=== PATIENT | male | born 1935 | race Caucasian/White ===

== ENCOUNTER 2020-11-26 13:32 | Observation (INO) ==
--- NOTE | 2020-11-26 14:01 | ERNOTE ---
Medical Problem HPI - Narrative Date of Service: 11/26/20 - General Chief Complaint: General Assessment Time Seen by Provider: 11/26/20 13:37 Source: patient Exam Limitations: no limitations - Immun/Allergies/Home Medications Immunizations: IMMUNIZATION HX Immunizations Up to Date Yes History of Influenza Vaccine Yes Hx Pneumococcal Vaccination Yes Allergies/Adverse Reactions: Allergies enalapril maleate [From Vasotec] Adverse Reaction (Mild, Verified 11/26/20 16:32) COUGH enalaprilat dihydrate [From Vasotec] Adverse Reaction (Mild, Verified 11/26/20 16:32) COUGH Home Medications: HOME MEDICATIONS Aspirin [Aspirin Chewable] 81 mg PO DAILY 05/07/15 [Last Taken Unknown] Blood Sugar Diagnostic, Drum [Accu-Chek Compact] 1 ea MC DAILY 02/13/16 [Last Taken Unknown] omega-3 fatty acids 1,000 mg capsule 2,000 mg PO DAILY cap 04/24/18 [Last Taken Unknown] cholecalciferol (vitamin D3) 25 mcg (1,000 unit) capsule 2,000 unit PO DAILY cap 04/28/18 [Last Taken Unknown] furosemide 40 mg tablet 40 mg PO DAILY #30 tab 11/08/19 [Last Taken Unknown] losartan 100 mg tablet 100 mg PO DAILY #90 tab 12/03/19 [Last Taken Unknown] repaglinide 0.5 mg tablet 0.5 mg PO TID 90 Days #270 tab 12/04/19 [Last Taken Unknown] blood sugar diagnostic See Dose Instructions .ROUTE .MEDSUPPLY #100 ea 05/26/20 [Last Taken Unknown] lancets 28 gauge See Dose Instructions .ROUTE .MEDSUPPLY #100 ea 05/27/20 [Last Taken Unknown] levothyroxine 137 mcg capsule 137 mcg PO DAILY #30 cap 08/29/20 [Last Taken Unknown] glipizide 10 mg tablet 25 mg PO DAILY #75 tab 10/27/20 [Last Taken Unknown] Carvedilol [Coreg] 12.5 mg PO BID 11/26/20 [Last Taken Unknown] Simvastatin [Zocor] 10 mg PO HS 11/26/20 [Last Taken Unknown] - History of Present History Narrative: This patient is an 85-year-old male who is here because he has no strength or energy. He feels like he might pass out at times. He has felt this way for the past for 5 days. For the past 1 to 2 weeks, he has had a cough which has been productive. He gets short of breath at times. He has had weight gain with increased abdominal girth and swelling of his legs. He has a known aortic stenosis murmur. He denies fever. He has had a runny nose. Review of Systems - Narrative Narrative: He denies history of COPD. He has no history of heart disease or atrial fibrillation. He denies congestive heart failure. He is not on a diuretic. - Review of Systems Constitutional: Present: weakness, fatigue. Absent: fever, weight loss EYE: Present: no symptoms reported ENT: Present: nasal drainage. Absent: ear pain, sore throat Respiratory: Present: shortness of breath, cough Cardiology: Present: edema. Absent: chest pain, palpitations, syncope Gastrointestinal/Abdominal: Absent: nausea, vomiting, diarrhea, constipation, abdominal pain Genitourinary: Absent: frequency, pain, dysuria, hematuria Musculoskeletal: Present: no symptoms reported Skin: Absent: rash Neurological: Present: dizziness/light-headedness. Absent: headache Endocrine: Present: other - He is diabetic Hematologic/Lymphatic: Present: other - No active bleeding Psych: Present: no symptoms reported Medical History (Last Reviewed 11/26/20 @ 13:59 by Nadir Walton MD) Chronic kidney disease, stage 3 (Chronic) Onset Date: Unknown Pappas's palsy (Chronic) Onset Date: Unknown Anemia (Chronic) Onset Date: Unknown Carpal tunnel syndrome Onset Date: ~1996 bilateral Cholecystitis Onset Date: Unknown Bronchitis Onset Date: Unknown Bursitis, shoulder Onset Date: ~2008 right shoulder Surgical History: Surgical History (Last Reviewed 11/26/20 @ 13:59 by Nadir Walton MD) H/O cystoscopy Onset Date: ~2014 H/O tooth extraction Onset Date: Unknown History of carpal tunnel release Onset Date: ~2000 bilateral History of colonoscopy Onset Date: ~2015 [place]-tubular adenoma. Recheck 5-10yrs. History of esophagogastroduodenoscopy (EGD) Onset Date: ~2015 [place]-' clotest negative, chronic gastritis. '16 clotest negative. Hx of cataract surgery Onset Date: ~2014 bilaterally Family History: Family History (Last Reviewed 11/26/20 @ 13:59 by Nadir Walton MD) Brother Pacemaker Heart disease Daughter Colon cancer Father No problems noted. Mother , age 89, CVA,HTN, Hypertension CVA (cerebral vascular accident) Sister Breast cancer Sister Myocardial infarction Son AIDS (acquired immune deficiency syndrome) Alcoholism Social History: (Last Reviewed 11/26/20 @ 13:59 by Nadir Walton MD) Social History: Marital status: Single household members: significant other current occupational status: retired Highest level of school completed/degree received: 9th grade Tobacco: Smoking Status: Never smoker Alcohol: alcohol intake: former Dietary Habits: caffeine: Yes Physical Exam - Physical Exam General Appearance: Present: wd/wn, alert, no apparent distress Head Exam: Present: normal inspection, no evidence of injury Eye Exam: Normal inspection: bilateral Ears, Nose, Throat: Present: normal ENT inspection Neck: Present: normal inspection, supple. Absent: limited range of motion - Get strep, lymphadenopathy (R) Respiratory: Present: no respiratory distress, crackles - Bilateral bases, right greater than left Cardiovascular/Chest: Present: bradycardia. Absent: no murmur Gastrointestinal/Abdominal: Present: normal bowel sounds, nontender, nondistended, soft, no organomegaly Back Exam: Present: normal inspection Extremity Exam: Present: normal inspection, pedal edema Neurological Exam: Present: alert, oriented, normal mood/affect, no motor/sensory deficits - No gross lateralizing neurologic deficit. Skin Exam: Present: normal color, warm/dry Progress - Results and Orders Patient's Lab Results:: I have reviewed the patient's lab results. Results and Orders: Laboratory Tests 11/26/20 11/26/20 11/26/20 14:04 14:04 14:35 WBC 5.5 RBC 3.48 L Hgb 11.0 L Hct 32.7 L MCV 94.0 MCH 31.6 H MCHC 33.6 RDW 13.0 Plt Count 95 L MPV 9.7 Immature Gran % (Auto) 0.70 H Immature Gran # (Auto) 0.04 H Neutrophils % 70.8 Lymphocytes % 13.3 L Monocytes % 12.4 H Eosinophils % 2.4 Basophils % 0.4 Nucleated RBC % 0.0 Neutrophils # 3.9 Lymphocytes # 0.73 L Monocytes # 0.7 Eosinophils # 0.1 Absolute Basophils 0.0 Sodium 139 Plasma Sodium 140 Potassium 4.4 Chloride 103 Carbon Dioxide 26.3 Anion Gap 14.1 H BUN 48 H Creatinine 1.75 H D Est GFR (Non-Af Amer) 39 L D BUN/Creatinine Ratio 27.4 H Random Glucose 140 H Calcium 8.7 Calcium Adj for Albumin 8.9 Total Bilirubin 0.8 AST 28 ALT 46 Alkaline Phosphatase 60 Troponin I 0.255 H* B-Natriuretic Peptide 36945 H Total Protein 6.2 Albumin 3.4 Urine Color Yellow Urine Appearance Clear Urine pH 6.0 Ur Specific [place] 1.015 Urine Protein Negative Urine Glucose (UA) Negative Urine Ketones Negative Urine Blood Negative Urine Nitrate Negative Urine Bilirubin Negative Urine Urobilinogen Normal Ur Leukocyte Esterase Negative Urine RBC Trace Urine WBC Trace Ur Epithelial Cells Trace Urine Bacteria Trace Urine Culture Comments No culture indicated - Vital Signs Patient's Vital Signs:: I have reviewed the patient's vital signs. Vital Signs: Vital Signs 11/26/20 13:33 Temperature 36.1 C Pulse Rate 62 Respiratory Rate 15 Blood Pressure 140/71 O2 Sat by Pulse Oximetry 97 - EKG EKG #1 EKG read: Interp. by me EKG Comments: Normal sinus rhythm Rate 61 Low voltage Poor R wave progression No acute appearing ST or T wave changes No significant change from an EKG dated 10/24/2019 - X-Ray X-Ray #1 X-Ray: chest Interpretation: Reviewed by me X-ray Comments: Chest PA & Lateral *~ Exam Date: 11/26/2020 14:49 Ordering Physician: Nadir Walton MD HISTORY: Shortness of breath 2 VIEW CHEST Comparison: 10/24/2019 Technique: Upright frontal and lateral views of the chest were obtained. Findings: The cardiac silhouette is borderline in size. The mediastinum and hilum are with in normal limits. The lung rede demonstrate mild hyperinflation, but appear clear. I do not see evidence for an infiltrate or pulmonary edema. There may be tiny effusions. IMPRESSION: 1. HYPERINFLATION. 2. PROBABLE TINY BILATERAL EFFUSIONS. 3. OTHERWISE, NO ACUTE CARDIOPULMONARY PROCESS. Electronically signed by Yuri Castellanos M.D.. - Progress/Reassessment Chief Complaint: General Assessment Departure Clinical Impression: Congestive heart failure, Generalized weakness, Elevated troponin, Diabetes mellitus, CKD (chronic kidney disease), Aortic valve stenosis - Departure Disposition: Still a patient Condition: Stable
[2020-11-26 14:11] LABS: Hematocrit 32.7 % (42.0-52.0); Mean Corpuscular Hemoglobin 31.6 pg (27-31); Mean Corpuscular Hgb Conc 33.6 g/dl (32-36); Mean Platelet Volume 9.7 fl (8-11.3); Neutrophil # 3.9 K/mm3 (1.3-6.0); Neutrophil % 70.8 % (42-75.0); Platelet Count 95 K/mm3 (150-450); Red Blood Count 3.48 M/mm3 (4.7-6.0); White Blood Count 5.5 K/mm3 (4.0-10.5)
[2020-11-26 14:33] LABS: Albumin * 3.4 gm/dl (3.4-5.0); Anion Gap 14.1 mmol/L (6.8-13.8); BUN/Creatinine Ratio 27.4 (9.0-21.6); Bilirubin, Total 0.8 mg/dL (0.0-1.1); Ca. Corrected For Albumin 8.9 mg/dL (8.4-10.2); Calcium * 8.7 mg/dL (7.9-10.9); Carbon Dioxide 26.3 mmol/L (24-32.6); Potassium 4.4 mmol/L (3.4-4.6); Total Protein 6.2 gm/dL (6.2-8.2); Troponin I 0.255 ng/mL (0.00-0.10)
[2020-11-26 14:45] LABS: Urine Bilirubin Negative (NEGATIVE); Urine Blood Negative /ul (NEGATIVE); Urine Ketone Negative (NEGATIVE); Urine Nitrite Negative (NEGATIVE); Urine Protein Negative (NEGATIVE); Urine Specific Gravity 1.015 SP.GR. (1.005-1.030); Urine Urobilinogen Normal (NORMAL)
[2020-11-26 14:57] LABS: Urine Appearance Clear (CLEAR); Urine Color Yellow
[2020-11-26 14:58] LABS: Urine Bacteria TRACE; Urine RBC TRACE /hpf (0-5); Urine WBC TRACE /hpf (0-5)
[2020-11-26] MEDS ORDERED: FUROSEMIDE 10 MG/ML VIAL IV ONE (15:03)
[2020-11-26] MEDS: BENZONATATE 100 MG CAPSULE PO PRN ×2 (17:39→22:27)
[2020-11-26] MEDS ORDERED: ALBUTEROL SULFATE 2.5 MG/0.5 ML VIAL.NEB IH ONE (20:12)
[2020-11-26] MEDS ORDERED: SIMVASTATIN 10 MG TABLET PO SCH (21:00)
[2020-11-26] MEDS ORDERED: LOSARTAN POTASSIUM 50 MG TABLET PO SCH (21:00)
[2020-11-26] MEDS: FUROSEMIDE 10 MG/ML VIAL IV SCH (21:04)
[2020-11-26] MEDS: CARVEDILOL 12.5 MG TABLET PO SCH (21:05)
--- NOTE | 2020-11-26 23:22 | HP ---
Chief Complaint - Chief Complaint Date of Service: 11/26/20 Time of Service: 16:00 Chief Complaint: Shortness of breath, cough History of Present Illness: Clifford is an 85 yo male that presents with shortness of breath, lower extremity edema, weakness, and weight gain. In the ER he was evaluated and BNP was 11,000. Chest xray shows bilateral pleural effusions (minimal). Troponin is indeterminately elevated at 0.2. He denies chest pain. He reports decreased activity lately, but no change in his sodium intake. He is unsure how much weight he has increased. He otherwise has not noticed any other changes. Medical History (Last Reviewed 11/26/20 @ 16:32 by Hesham Kwan RN) Chronic kidney disease, stage 3 (Chronic) Onset Date: Unknown Pappas's palsy (Chronic) Onset Date: Unknown Anemia (Chronic) Onset Date: Unknown Diabetes Carpal tunnel syndrome Onset Date: ~1996 bilateral Cholecystitis Onset Date: Unknown Bronchitis Onset Date: Unknown Bursitis, shoulder Onset Date: ~2008 right shoulder Surgical History: Surgical History (Last Reviewed 11/26/20 @ 16:32 by Hesham Kwan RN) H/O cystoscopy Onset Date: ~2014 H/O tooth extraction Onset Date: Unknown History of carpal tunnel release Onset Date: ~2000 bilateral History of colonoscopy Onset Date: ~2015 [place]-tubular adenoma. Recheck 5-10yrs. History of esophagogastroduodenoscopy (EGD) Onset Date: ~2015 [place]-'11 clotest negative, chronic gastritis. '16 clotest negative. Hx of cataract surgery Onset Date: ~2014 bilaterally Family History: Family History (Last Reviewed 11/26/20 @ 16:32 by Hesham Kwan RN) Brother Heart disease Pacemaker Daughter Colon cancer Father No problems noted. Mother , age 89, CVA,HTN, CVA (cerebral vascular accident) Hypertension Sister Breast cancer Sister Myocardial infarction Son Alcoholism AIDS (acquired immune deficiency syndrome) Social History: (Last Reviewed 11/26/20 @ 16:32 by Hesham Kwan RN) Social History: Marital status: Single household members: significant other current occupational status: retired Highest level of school completed/degree received: 9th grade Tobacco: Smoking Status: Never smoker Alcohol: alcohol intake: former Dietary Habits: caffeine: Yes Review Of Systems (GEN) - Review of Systems Generalized/Overall Review: Present: Weakness. Absent: Chills, Fever EENTM: Present: No Symptoms Reported Respiratory: Present: Cough, Shortness of Breath Cardiac: Present: Edema. Absent: Chest Pain, Palpitations, Syncope Abdominal: Absent: Nausea, Vomiting Genitourinary: Absent: Burning, Frequency Musculoskeletal: Present: No Symptoms Reported Neurological: Absent: Headache, Anxiety Skin: Present: No Symptoms Reported Immunizations: IMMUNIZATION HX Immunizations Up to Date Yes History of Influenza Vaccine Yes Hx Pneumococcal Vaccination Yes Allergies/Adverse Reactions: Allergies Allergy/AdvReac Type Severity Reaction Status Date / Time enalapril maleate AdvReac Mild COUGH Verified 11/26/20 16:32 [From Vasotec] enalaprilat dihydrate AdvReac Mild COUGH Verified 11/26/20 16:32 [From Vasotec] Home Medications: HOME MEDICATIONS Aspirin [Aspirin Chewable] 81 mg PO DAILY 05/07/15 [Last Taken Unknown] Blood Sugar Diagnostic, Drum [Accu-Chek Compact] 1 ea MC DAILY 02/13/16 [Last Taken Unknown] omega-3 fatty acids 1,000 mg capsule 2,000 mg PO DAILY cap 04/24/18 [Last Taken Unknown] cholecalciferol (vitamin D3) 25 mcg (1,000 unit) capsule 2,000 unit PO DAILY cap 04/28/18 [Last Taken Unknown] furosemide 40 mg tablet 40 mg PO DAILY #30 tab 11/08/19 [Last Taken Unknown] losartan 100 mg tablet 100 mg PO DAILY #90 tab 12/03/19 [Last Taken Unknown] repaglinide 0.5 mg tablet 0.5 mg PO TID 90 Days #270 tab 12/04/19 [Last Taken Unknown] blood sugar diagnostic See Dose Instructions .ROUTE .MEDSUPPLY #100 ea 05/26/20 [Last Taken Unknown] lancets 28 gauge See Dose Instructions .ROUTE .MEDSUPPLY #100 ea 05/27/20 [Last Taken Unknown] levothyroxine 137 mcg capsule 137 mcg PO DAILY #30 cap 08/29/20 [Last Taken Unknown] glipizide 10 mg tablet 25 mg PO DAILY #75 tab 10/27/20 [Last Taken Unknown] Carvedilol [Coreg] 12.5 mg PO BID 11/26/20 [Last Taken Unknown] Simvastatin [Zocor] 10 mg PO HS 11/26/20 [Last Taken Unknown] Exam - Exam Vital Signs: Vital Signs - Last Taken Temp 36.6 C 11/26/20 16:45 Pulse 64 11/26/20 21:05 Resp 16 11/26/20 20:23 BP 171/79 H 11/26/20 21:05 Pulse Ox 97 11/26/20 20:15 Constitutional: Present: Alert, Oriented x3, Cooperative ENT Exam: Present: hearing grossly normal Eye Exam: bilateral eye: normal inspection Respiratory: Present: crackles Cardiovascular/Chest: Present: regular rate, rhythm, no murmur Peripheral Pulses: radial (R): 2+, radial (L): 2+ Abdomen: Present: Normal bowel sounds, soft, nontender, nondistended Extremity: Present: lower extremity edema - 3+ Skin Exam: Present: normal color, warm/dry, no cyanosis Lymphatic: Present: no adenopathy Appearance: Present: appropriate appearance, appropriate insight Eye contact: Present: cooperative, good eye contact, normal speech Thoughts: Present: normal thought pattern, no apparent hallucination Diagnostic Studies: Abnormal Lab Results 11/26/20 11/26/20 Range/Units 14:04 14:04 RBC 3.48 L (4.7-6.0) M/mm3 Hgb 11.0 L (13.5-18.0) gm/dL Hct 32.7 L (42.0-52.0) % MCH 31.6 H (27-31) pg Plt Count 95 L (150-450) K/mm3 Immature Gran % (Auto) 0.70 H (0.001-0.429) % Immature Gran # (Auto) 0.04 H (0.000-0.0310) K/mm3 Lymphocytes % 13.3 L (20-51) % Monocytes % 12.4 H (0.0-9) % Lymphocytes # 0.73 L (1.5-3.5) k/mm3 Anion Gap 14.1 H (6.8-13.8) mmol/L BUN 48 H (6-23) mg/dL Creatinine 1.75 H D (0.4-1.4) mg/dL Est GFR (Non-Af Amer) 39 L D (60-130) mL/min BUN/Creatinine Ratio 27.4 H (9.0-21.6) Random Glucose 140 H (70-110) mg/dL Troponin I 0.255 H* (0.00-0.10) ng/mL B-Natriuretic Peptide 79633 H (5-650) pg/mL Laboratory Results WBC 5.5 K/mm3 (4.0-10.5) 11/26/20 14:04 RBC 3.48 M/mm3 (4.7-6.0) L 11/26/20 14:04 Hgb 11.0 gm/dL (13.5-18.0) L 11/26/20 14:04 Hct 32.7 % (42.0-52.0) L 11/26/20 14:04 MCV 94.0 fl (78-100) 11/26/20 14:04 MCH 31.6 pg (27-31) H 11/26/20 14:04 MCHC 33.6 g/dl (32-36) 11/26/20 14:04 RDW 13.0 % (11.5-14.0) 11/26/20 14:04 Plt Count 95 K/mm3 (150-450) L 11/26/20 14:04 MPV 9.7 fl (8-11.3) 11/26/20 14:04 Immature Gran % (Auto) 0.70 % (0.001-0.429) H 11/26/20 14:04 Immature Gran # (Auto) 0.04 K/mm3 (0.000-0.0310) H 11/26/20 14:04 Neutrophils % 70.8 % (42-75.0) 11/26/20 14:04 Lymphocytes % 13.3 % (20-51) L 11/26/20 14:04 Monocytes % 12.4 % (0.0-9) H 11/26/20 14:04 Eosinophils % 2.4 % (0.0-3.0) 11/26/20 14:04 Basophils % 0.4 % (0.0-1.0) 11/26/20 14:04 Nucleated RBC % 0.0 k/mm3 (0-1) 11/26/20 14:04 Neutrophils # 3.9 K/mm3 (1.3-6.0) 11/26/20 14:04 Lymphocytes # 0.73 k/mm3 (1.5-3.5) L 11/26/20 14:04 Monocytes # 0.7 k/mm3 (0.0-1.0) 11/26/20 14:04 Eosinophils # 0.1 k/mm3 (0.0-0.7) 11/26/20 14:04 Absolute Basophils 0.0 k/mm3 (0.0-0.1) 11/26/20 14:04 Sodium 139 mmol/L (132-142) 11/26/20 14:04 Plasma Sodium 140 mmol/L (130-142) 11/26/20 14:04 Potassium 4.4 mmol/L (3.4-4.6) 11/26/20 14:04 Chloride 103 mmol/L (97-106) 11/26/20 14:04 Carbon Dioxide 26.3 mmol/L (24-32.6) 11/26/20 14:04 Anion Gap 14.1 mmol/L (6.8-13.8) H 11/26/20 14:04 BUN 48 mg/dL (6-23) H 11/26/20 14:04 Creatinine 1.75 mg/dL (0.4-1.4) H D 11/26/20 14:04 Est GFR (Non-Af Amer) 39 mL/min (60-130) L D 11/26/20 14:04 BUN/Creatinine Ratio 27.4 (9.0-21.6) H 11/26/20 14:04 Random Glucose 140 mg/dL (70-110) H 11/26/20 14:04 Calcium 8.7 mg/dL (7.9-10.9) 11/26/20 14:04 Calcium Adj for Albumin 8.9 mg/dL (8.4-10.2) 11/26/20 14:04 Total Bilirubin 0.8 mg/dL (0.0-1.1) 11/26/20 14:04 AST 28 U/L (0-48) 11/26/20 14:04 ALT 46 U/L (19-67) 11/26/20 14:04 Alkaline Phosphatase 60 U/L (50-170) 11/26/20 14:04 Troponin I 0.255 ng/mL (0.00-0.10) H* 11/26/20 14:04 B-Natriuretic Peptide 94347 pg/mL (5-650) H 11/26/20 14:04 Total Protein 6.2 gm/dL (6.2-8.2) 11/26/20 14:04 Albumin 3.4 gm/dl (3.4-5.0) 11/26/20 14:04 Urine Color Yellow 11/26/20 14:35 Urine Appearance Clear (CLEAR) 11/26/20 14:35 Urine pH 6.0 pH (5.0-7.0) 11/26/20 14:35 Ur Specific [place] 1.015 SP.GR. (1.005-1.030) 11/26/20 14:35 Urine Protein Negative mg/dL (NEGATIVE) 11/26/20 14:35 Urine Glucose (UA) Negative mg/dL (NEGATIVE) 11/26/20 14:35 Urine Ketones Negative mg/dL (NEGATIVE) 11/26/20 14:35 Urine Blood Negative /ul (NEGATIVE) 11/26/20 14:35 Urine Nitrate Negative (NEGATIVE) 11/26/20 14:35 Urine Bilirubin Negative mg/dl (NEGATIVE) 11/26/20 14:35 Urine Urobilinogen Normal EU/dl (NORMAL) 11/26/20 14:35 Ur Leukocyte Esterase Negative /ul (NEGATIVE) 11/26/20 14:35 Urine RBC Trace /hpf (0-5) 11/26/20 14:35 Urine WBC Trace /hpf (0-5) 11/26/20 14:35 Ur Epithelial Cells Trace /hpf (0-5) 11/26/20 14:35 Urine Bacteria Trace (NONE) 11/26/20 14:35 Urine Culture Comments No culture indicated 11/26/20 14:35 SARS-CoV-2 (PCR) Not detected (NotDetected) 11/26/20 15:20 Assessment/Plan - Narrative Narrative: Clifford is an 85 yo male with acute on chronic diastolic CHF. He had echocardiogram in 2018 that showed Grade I Diastolic dysfunction with EF approximately 60%. He has no respiratory failure but has significant edema and shortness of breath requiring admission for IV diuresis. Will treat with IV lasix q6 hours and monitoring of renal function. He has CKD stage 3 which appears to be at his baseline. Will admit to observation at this time and will work to discharge to home tomorrow after sufficient diuresis. I suspect elevated troponin is secondary to renal function and CHF as he does not have clinical findings of [place]. - Assessment/Plan (1) Acute on chronic diastolic (congestive) heart failure Problem: Acute (2) CKD (chronic kidney disease) Problem: Chronic Qualifiers: Chronic kidney disease stage: stage 3 (moderate) Chronic kidney disease stage 3 subtype: stage 3b (GFR 30-44) Qualified Code(s): N18.32 - Chronic kidney disease, stage 3b (3) Generalized weakness Problem: Acute (4) Elevated troponin Problem: Acute
[2020-11-27] MEDS: FUROSEMIDE 10 MG/ML VIAL IV SCH ×3 (03:26→15:38)
[2020-11-27] MEDS ORDERED: ACETAMINOPHEN 500 MG TABLET PO PRN (05:59)
[2020-11-27] MEDS ORDERED: LEVOTHYROXINE SODIUM 137 MCG TABLET PO SCH (07:00)
[2020-11-27] MEDS: BENZONATATE 100 MG CAPSULE PO PRN (07:08)
[2020-11-27] MEDS ORDERED: ASPIRIN 81 MG TAB.CHEW PO SCH (09:00)
[2020-11-27] MEDS ORDERED: CHOLECALCIFEROL 1,000 UNIT CAPSULE PO SCH (09:00)
[2020-11-27] MEDS: CARVEDILOL 12.5 MG TABLET PO SCH (09:59)
[2020-11-27 10:58] LABS: Albumin * 3.3 gm/dl (3.4-5.0); Anion Gap 10.9 mmol/L (6.8-13.8); BUN/Creatinine Ratio 26.7 (9.0-21.6); Bilirubin, Total 1.1 mg/dL (0.0-1.1); Ca. Corrected For Albumin 9.1 mg/dL (8.4-10.2); Calcium * 8.9 mg/dL (7.9-10.9); Carbon Dioxide 30.2 mmol/L (24-32.6); Potassium 4.1 mmol/L (3.4-4.6); Total Protein 6.4 gm/dL (6.2-8.2)
--- NOTE | 2020-11-27 15:14 | DS ---
(1) Acute on chronic diastolic (congestive) heart failure Problem: Resolved (2) CKD (chronic kidney disease) Problem: Chronic Qualifiers: Chronic kidney disease stage: stage 3 (moderate) Chronic kidney disease stage 3 subtype: stage 3b (GFR 30-44) Qualified Code(s): N18.32 - Chronic kidney disease, stage 3b (3) Generalized weakness Problem: Acute (4) Elevated troponin Problem: Acute (5) Chronic diastolic CHF (congestive heart failure) Problem: Chronic Date of Discharge:: 11/27/20 Hospital Course: Clifford is an 85 yo male who was admitted for acute on chronic diastolic CHF. He has had decreased activity and reports his lasix was not working at home. He typically takes 40mg daily and he was not having much urinary response. He was admitted and placed on Lasix 40mg IV every 6 hours. His troponin was elevated but without clinical symptoms of [place] this was suspected to be due to CHF and CKD. He has diuresed well and is down at least 5lbs of fluid. His lower extremity edema is better. He was evaluated by PT and did well enough for home discharge. He will be discharged to home on 80mg of PO Lasix. He will follow up with Dr. Baez in 1 week. He will have home health with therapy set up at home to monitor his fluid status, vitals, and work on strengthening due to Chronic Diastolic CHF, Diabetes Mellitus Type 2, and weakness. A face to face was completed today. He is weak and it is physically taxing for him to leave the home, he is therefore homebound. Procedures Performed: none Results and Findings: Lab Pending Results 11/26/20 14:04: WBC 5.5, RBC 3.48 L, Hgb 11.0 L, Hct 32.7 L, MCV 94.0, MCH 31.6 H, MCHC 33.6, RDW 13.0, Plt Count 95 L, MPV 9.7, Immature Gran % (Auto) 0.70 H, Immature Gran # (Auto) 0.04 H, Neutrophils % 70.8, Lymphocytes % 13.3 L, Monocytes % 12.4 H, Eosinophils % 2.4, Basophils % 0.4, Nucleated RBC % 0.0, Neutrophils # 3.9, Lymphocytes # 0.73 L, Monocytes # 0.7, Eosinophils # 0.1, Absolute Basophils 0.0 11/26/20 14:04: Sodium 139, Plasma Sodium 140, Potassium 4.4, Chloride 103, Carbon Dioxide 26.3, Anion Gap 14.1 H, BUN 48 H, Creatinine 1.75 H D, Est GFR (Non-Af Amer) 39 L D, BUN/Creatinine Ratio 27.4 H, Random Glucose 140 H, Calcium 8.7, Calcium Adj for Albumin 8.9, Total Bilirubin 0.8, AST 28, ALT 46, Alkaline Phosphatase 60, Troponin I 0.255 H*, B-Natriuretic Peptide 49779 H, Total Protein 6.2, Albumin 3.4 11/26/20 14:35: Urine Color Yellow, Urine Appearance Clear, Urine pH 6.0, Ur Specific [place] 1.015, Urine Protein Negative, Urine Glucose (UA) Negative, Urine Ketones Negative, Urine Blood Negative, Urine Nitrate Negative, Urine Bilirubin Negative, Urine Urobilinogen Normal, Ur Leukocyte Esterase Negative, Urine RBC Trace, Urine WBC Trace, Ur Epithelial Cells Trace, Urine Bacteria Trace, Urine Culture Comments No culture indicated 11/26/20 15:20: SARS-CoV-2 (PCR) Not detected 11/27/20 10:32: Sodium 139, Plasma Sodium 141, Potassium 4.1, Chloride 102, Carbon Dioxide 30.2, Anion Gap 10.9, BUN 51 H, Creatinine 1.91 H, Est GFR (Non- Af Amer) 36 L, BUN/Creatinine Ratio 26.7 H, Random Glucose 204 H D, Calcium 8.9, Calcium Adj for Albumin 9.1, Total Bilirubin 1.1, AST 26, ALT 45, Alkaline Phosphatase 62, Total Protein 6.4, Albumin 3.3 L Discharge Location: Home Disposition: Home Health Service Home Health Agency: [facility] Home Health Condition: Stable Face to Face Encounter completed per CMS Guidelines: Yes Discharge Activity: Activity as tolerated Discharge Diet: Low salt Referrals: Samina Baez MD [Primary Care Provider] - One Week Problem Oriented Discharge Instructions to Patient/Family: CHF Patient Instructions Additional Patient Instructions (free text): [facility] new at discharge- nursing, therapy. Fax discharge summary, orders, and med list and call report. Prescriptions (Any new or edited meds): Furosemide [Lasix] 80 mg PO DAILY #30 tab Transmission Status: Pending to [facility], [place], [place] Complete Home Medications List: Complete Home Medication List: Aspirin [Aspirin Chewable] 81 mg PO DAILY 05/07/15 Blood Sugar Diagnostic, Drum [Accu-Chek Compact Plus Strips] 1 ea MC DAILY 02/13/16 omega-3 fatty acids 1,000 mg capsule 2,000 mg PO DAILY cap 04/24/18 cholecalciferol (vitamin D3) 25 mcg (1,000 unit) capsule 2,000 unit PO DAILY cap 04/28/18 losartan 100 mg tablet 100 mg PO DAILY #90 tab 12/03/19 repaglinide 0.5 mg tablet 0.5 mg PO TID 90 Days #270 tab 12/04/19 blood sugar diagnostic See Dose Instructions .ROUTE .MEDSUPPLY #100 ea 05/26/20 lancets 28 gauge See Dose Instructions .ROUTE .MEDSUPPLY #100 ea 05/27/20 levothyroxine 137 mcg capsule 137 mcg PO DAILY #30 cap 08/29/20 glipizide 10 mg tablet 25 mg PO DAILY #75 tab 10/27/20 Carvedilol [Coreg] 12.5 mg PO BID 11/26/20 Simvastatin [Zocor] 10 mg PO HS 11/26/20 Furosemide [Lasix] 80 mg PO DAILY #30 tab 11/27/20
[2020-11-27 16:45] VITALS: BP 141/66
== END 2020-11-27 17:17 | disposition home health service (06) ==
LOC: ER 13:32 → MS 15:39 → INTOOBSV 15:39 → MS 16:32
PROVIDERS: ADMIT Family Medicine; ATTEND Family Medicine
DX: E11.22 Type 2 diabetes mellitus with diabetic chronic kidney disease; R53.1 Weakness; Z79.84 Long term (current) use of oral hypoglycemic drugs; N18.32 Chronic kidney disease, stage 3b; R06.00 Dyspnea, unspecified; I50.33 Acute on chronic diastolic (congestive) heart failure